=== PATIENT | male | born 1990 | race African-American/Black ===

== ENCOUNTER 2019-06-24 12:46 | Inpatient (IN) | payer OTHER ==
[~2019-06-24] VITALS: Ht 165.1 cm; Wt 70.8 kg
[2019-06-24 12:46] VITALS: BP 147/81; TEMP 98.1
[2019-06-24 13:00] VITALS: BP 122/66
[2019-06-24 13:34] LABS: PLATELET COUNT 278 K/uL (142-355)
[2019-06-24 13:47] LABS: POTASSIUM 5.3 mmol/L (3.6-5.2); SODIUM 129 mmol/L (136-145)
[2019-06-24 13:51] LABS: PARTIAL THROMBOPLASTIN TIME 20.9 SECONDS (24.5-33.6)
[2019-06-24 14:00] VITALS: BP 110/69
[2019-06-24 15:00] VITALS: BP 117/74
[2019-06-24 17:03] VITALS: BP 138/84; TEMP 98.2; Ht 165.1 cm; Wt 70.8 kg
[2019-06-24 20:09] VITALS: BP 116/79; TEMP 98.9
[2019-06-25 00:02] VITALS: BP 104/56; TEMP 97.9
[2019-06-25 04:02] VITALS: BP 107/61; TEMP 98.1
[2019-06-25 06:28] LABS: POTASSIUM 3.4 mmol/L (3.6-5.2)
[2019-06-25 08:00] VITALS: BP 108/70; TEMP 98.6
[2019-06-25 12:00] VITALS: BP 114/70; TEMP 98.4
== END 2019-06-25 14:30 | disposition home or self-care (01) | DRG 638 ==
LOC: ED 12:52 → MED/SURG 14:30
PROVIDERS: Internal Medicine; ADMIT Hospitalist
DX: E11.65 Type 2 diabetes mellitus with hyperglycemia (principal); G40.89 Other seizures; R94.5 Abnormal results of liver function studies
CPT/HCPCS: 36415; 36600; 51702; 80053; 80307; 80320; 81000; 81002; 82805; 82962; 83036; 83605; 83880; 84484; 85027; 85610; 85730; 87040; 93005; 96360; 96365; 96375; 99284; J1650; J1815; J2060